=== PATIENT | male | born 1970 | race Caucasian/White ===

== ENCOUNTER 2017-06-21 12:32 | Inpatient (IN) | payer BC, OTHER ==
[~2017-06-21] VITALS: Ht 182.9 cm; Wt 84.8 kg
--- NOTE | 2017-06-22 00:20 | NUR ---
PRE ADMISSION Pt is a 46 y/o male, seen at intake, AAOx4, no SOB with mild to moderate anxiety noted at this time. Discussed with patient the admission policies of the unit. Patient is coherent and able to respond to questions appropriately. Pt is ambulatory with steady gait. Vital signs taken and as follows: BP: 137/68, P: 107, R: 16, O2: 97%, T: 97.8, PA: 5/10. Pt verbalized understanding of instructions and teachings regarding disposal of narcotic and other controlled home medications, unit protocols such as taking of vital signs Q4H and handling and disposal of contraband. Will continue with admission upon pts arrival on the unit.
--- NOTE | 2017-06-22 00:31 | NUR ---
ADMISSION NOTE Pt is a 38 y/o male admitted on 04/26/17 for opiate and ETOH dependence, arrived on the unit at 0031. Pt is allergic to penicillins, denies history of seizures. Pt was able to provide UDS. Upon admission CIWA 6, BP: 137/68, P: 107, R: 16, O2: 97%, T: 97.8, PA: 5/10. Weight 187, height 6'0. Pt reports he does have a PCP, smokes 0.5 packs daily, denies being hospitalized within past 30 days. Pt is able to understand and respond to all questions pertaining to his hospitalization. Substance Abuse History is as follows: 1. Buprenorphine 1 mg daily, last intake of 2 mg on 06/21/17 at 1430, at this rate for 3 months. 2. Beer "Two beers" 1-2 x weekly, last intake of 2 beers on 06/20/17, at this rate for 17 years. Pt denies prior detox or treatment facilities. Pt reports this is his first time being off of Buprenorphine and beer. Pt reports the following family medical history: father-HTN and enlarged prostate, mother-depression. Pt reports he has recent job loss in April and is recently homeless d/t being kicked out by his . Pt reports one overdose from buprenorphine in April 2017 r/t feelings of depression and anxiety, denies SI. PMH: Anxiety, depression, insomnia, hypothyroid, genital warts. Past surgical history: Osteotomy and tonsillectomy. Pt denies any hx of seizures. Pt brought non-controlled medications from home. Upon assessment, pt is AAOx4, pt presents with anxiety, mild tremors, restlessness, increased HR, irritability, mild sweats. Pt also complains of chronic pain 5/10 in left hip and right femur. Pt reports he does not take NSAIDS d/t causing moderate nasal congestion. Respirations even and unlabored. Denies SOB, chest pain, N/V/D. Bowel sounds active x 4, abdomen soft. PERRLA. Skin intact, no open wounds noted. Pt denies SI/HI. Educational information provided and left at bedside. Pt oriented to room and encouraged to notify staff with any concerns. Safety measures in place. Call light within reach, side rails up x 2, bed locked and in low position. Will continue to monitor.
[2017-06-22] MEDS ORDERED: CLONIDINE HCL 0.1 MG TABLET PO PRN (01:30)
[2017-06-22] MEDS ORDERED: LORAZEPAM 1 MG TABLET PO PRN ×2 (01:30)
[2017-06-22] MEDS ORDERED: LOPERAMIDE HCL 2 MG CAPSULE PO PRN ×2 (01:30)
[2017-06-22] MEDS ORDERED: IBUPROFEN 600 MG TABLET PO PRN (01:30)
[2017-06-22] MEDS ORDERED: LORAZEPAM 2 MG/1 ML VIAL IM PRN (01:30)
[2017-06-22] MEDS ORDERED: METHOCARBAMOL 750 MG TABLET PO PRN (01:30)
[2017-06-22] MEDS ORDERED: ACETAMINOPHEN 325 MG TABLET PO PRN (01:30)
[2017-06-22] MEDS ORDERED: diphenhydrAMINE 50 MG CAPSULE PO PRN (01:30)
[2017-06-22] MEDS ORDERED: ONDANSETRON ODT 4 MG TAB.RAPDIS SL PRN (01:30)
[2017-06-22] MEDS ORDERED: MAGNESIUM HYDROXIDE 30 ML LIQUID UDC PO PRN (01:30)
[2017-06-22] MEDS ORDERED: MAG HYDROX/AL HYDROX/SIMETH 30 ML LIQUID UDC PO PRN (01:30)
[2017-06-22] MEDS ORDERED: THIAMINE HCL 200 MG/2 ML VIAL IM ONE (01:30)
[2017-06-22] MEDS ORDERED: HYDROXYZINE PAMOATE 25 MG CAPSULE PO PRN ×2 (01:30→13:15)
[2017-06-22] MEDS ORDERED: MIRALAX 17 GM POWD.PACK PO PRN (01:30)
[2017-06-22] MEDS ORDERED: BUPRENORPHINE HCL 2 MG TAB.SUBL SL PRN (01:30)
[2017-06-22] MEDS ORDERED: ONDANSETRON 4 MG/2 ML VIAL IM PRN (01:30)
[2017-06-22 01:58] LABS: *AMPHETAMINE, URINE NEGATIVE (NEGATIVE); *BARBITURATE, URINE NEGATIVE (NEGATIVE); *CANNABINOID, URINE NEGATIVE (NEGATIVE); *COCCAINE, URINE NEGATIVE (NEGATIVE); *OPIATE, URINE NEGATIVE (NEGATIVE); *PHENCYCLIDINE SCREEN,URINE NEGATIVE (NEGATIVE)
[2017-06-22 02:04] LABS: BASOPHILS # (AUTO) 0.1 K/uL (0.0-8.0); BASOPHILS % (AUTO) 0.7 % (0.0-2.0); EOSINOPHILS # (AUTO) 0.2 K/uL (0.0-0.7); EOSINOPHILS % (AUTO) 1.5 % (0.0-7.0); HEMATOCRIT 45.7 % (40-50); HEMOGLOBIN 15.3 G/DL (14.0-18.0); LYMPHOCYTES # (AUTO) 2.8 K/UL (0.8-4.8); LYMPHOCYTES % (AUTO) 26.1 % (20.5-51.5); MEAN CORPUSCULAR HEMOGLOBIN 29.5 UUG (27.0-31.0); MEAN CORPUSCULAR HGB CONC 34 g/dL (32.0-37.0); MEAN CORPUSCULAR VOLUME 88.1 FL (82.0-92.0); MONOCYTES # (AUTO) 0.9 K/UL (0.1-1.30); MONOCYTES % (AUTO) 8.2 % (0.0-11.0); NEUTROPHILS # (AUTO) 6.7 K/UL (1.8-8.9); NEUTROPHILS % (AUTO) 63.5 % (38.5-71.5); PLATELET COUNT (AUTO) 197 K/UL (150-450); RED BLOOD CELL COUNT(AUTO) 5.18 MIL/UL (4.7-6.1); WHITE BLOOD COUNT (AUTO) 10.7 K/UL (4.0-11.2)
--- NOTE | 2017-06-22 02:10 | NUR ---
X 1 ATIVAN 1 MG AND PRN TYLENOL 650 MG ADMINISTRATION CIWA 6. Pt presents with moderate anxiety, restlessness, mild tremors, mild sweats, irritability. Pt also reports chronic pain 5/10 in left hip and right femur. Safety measures in place. Call light within reach. Will continue to monitor.
[2017-06-22 02:17] LABS: ALANINE AMINOTRANSFERASE 50 U/L (16-63); ALKALINE PHOSPHATASE 76 U/L (50-136); AMYLASE 42 U/L (25-115); ASPARTATE AMINOTRANSFERASE 20 U/L (15-37); BILIRUBIN,TOTAL 0.4 mg/dL (0.2-1.0); CARBON DIOXIDE 28 mmol/L (21-32); CHLORIDE 104 mmol/L (98-107); GLUCOSE 81 mg/dL (74-106); LIPASE 109 U/L (73-393); MAGNESIUM 1.9 mg/dL (1.8-2.4); POTASSIUM 4.4 mmol/L (3.5-5.1); UREA NITROGEN, BLOOD 12 mg/dL (7-18)
[2017-06-22] MEDS ORDERED: LORAZEPAM 1 MG TABLET ONE (02:23)
[2017-06-22 02:24] LABS: ETHANOL < 3 MG/DL (0-0)
[2017-06-22] MEDS ORDERED: ACETAMINOPHEN 325 MG TABLET ONE (02:24)
[2017-06-22 02:28] LABS: THYROID STIMULATING HORMONE 2.102 mIU/mL (0.358-3.740)
[2017-06-22] MEDS ORDERED: [UNRECOGNIZED DRUG - CODE] TP ×2 (03:02→03:03)
[2017-06-22] MEDS ORDERED: LEVO50TA8 PO (03:03)
[2017-06-22] MEDS ORDERED: IMIQ1CRE11 TP (03:03)
[2017-06-22] MEDS ORDERED: GABA-534 PO (03:06)
[2017-06-22] MEDS ORDERED: METH500T PO (03:08)
[2017-06-22] MEDS ORDERED: SALS750T20 PO (03:09)
[2017-06-22] MEDS ORDERED: TRAZ-147 PO (03:10)
--- NOTE | 2017-06-22 03:10 | NUR ---
X 1 ATIVAN 1 MG AND PRN TYLENOL REASSESSMENT Pt took a shower after medication administration, pt now laying in bed with eyes closed. CIWA reassessment deferred, to be assessed when pt is awake per orders. Safety measures in place. Call light within reach. Will continue to monitor.
[2017-06-22] MEDS ORDERED: DICL100G16 TP (03:12)
[2017-06-22] MEDS ORDERED: ONDA4TAB10 PO (03:12)
[2017-06-22 04:00] VITALS: BP 114/71
--- NOTE | 2017-06-22 04:00 | NUR ---
CIWA/COW DEFERRED Pt is laying in bed with eyes closed, CIWA/COW deferred, to be assessed when pt is awake per orders. Respirations 16, even and unlabored. Safety measures in place. Call light within reach. Will continue to monitor.
--- NOTE | 2017-06-22 07:26 | NUR ---
END OF SHIFT Pt is a 46 y/o male admitted on 06/22/17 for opiate and ETOH dependence. Pt was dependent on 1 mg buprenorphine daily for 3 months and 2 beers 1-2 x weekly for 17 years. Pt reports last intake of Buprenorphine was 2 mg at 06/21/17 at 1430. Pt is allergic to penicillin, lactose intolerant diet, full code and fall/seizure precautions. No reported seizure history. Pt reports PMH of hypothyroid, anxiety, depression, insomnia, genital warts. Pt presented with anxiety, mild sweats, restlessness, increased HR, mild fine tremors, irritability and chronic pain 5/10 in left hip and right femur. No ordered taper at this time. One time Ativan 1 mg and PRN Tylenol 650 mg administered, effective in S/S of withdrawal as verbalized by pt. Last COW 6 CIWA 6. Pt slept 3 hours, intake 796 ml, void x 1, stool x 0. Safety measures in place. Call light within reach. Will continue to monitor. Endorsed to day shift nurse.
--- NOTE | 2017-06-22 07:27 | NUR ---
Start of Shift Notes: Received report from night nurse. Patient is in his room. Alert and verbally responsive. Oriented x 4. Able to make his/her needs known. Respirations even and unlabored. No SOB noted. Skin warm and moist to touch. Abdomen soft and non-distended. BS (+) in all 4 quadrants. No complains of N/V/D or constipation noted. Bladder non-distended. No complains of dysuria noted. Ambulatory ad shawna with steady gait. Patient is a 46 year old male admitted for ETOH and opiate dependence who was placed on PRNs at this time. Prior to admission, patient was using 1 mg of Subutex SL and "1-2 beers" weekly x 17 years. Has past medical hx of anxiety, depression, hypothyroidism, genital warts and insomnia, tonsillectomy, osteotomy. Allergic to PCN. FULL CODE. Lactose Intolerant. Educated patient on the current plan of care for the day and the medication regimen. Encouraged oral fluid intake and encouraged group participation to learn new skills to prevent relapse. Will continue to monitor closely throughout the day.
[2017-06-22 08:00] VITALS: BP 111/77
--- NOTE | 2017-06-22 08:39 | NUR ---
Clonidine 0.1 mg PO given: Patient noted with complains of anxiety, mild agitation, chills and mild sweats. COWS 4/CIWA 3. BP 111/77. Pulse 90. Non-pharmacological interventions provided but ineffective. Medicated patient with Clonidine 0.1mg PO as ordered. Will monitor for effectiveness.
[2017-06-22] MEDS ORDERED: FOLIC ACID 1 MG TABLET PO SCH (09:00)
[2017-06-22] MEDS ORDERED: THIAMINE HCL 100 MG TABLET PO SCH (09:00)
[2017-06-22] MEDS ORDERED: MULTIVITAMINS,THERAPEUTIC TABLET PO SCH (09:00)
--- NOTE | 2017-06-22 09:39 | NUR ---
Re-assessment: Per patient, PRN Clonidine was effective in reducing anxiety, chills, hot flashes, mild tremors and sweats.
[2017-06-22 12:00] VITALS: BP 128/80
--- NOTE | 2017-06-22 13:14 | NUR ---
Subutex 4 mg SL PRN/Robaxin 750 mg PO given: Patient noted with COWS 13, presented with moderate anxiety, gross tremors, chills, hot flashes, myalgia, runny nose and restlessness with pupil dilation. Medicated patient with Robaxin 750 mg PO as ordered and Subutex 4 mg SL per COWS score. Will monitor for effectiveness.
[2017-06-22] MEDS ORDERED: SALSALATE 750 MG PO PRN (13:15)
[2017-06-22] MEDS ORDERED: VOLTAREN TOP PRN (13:15)
--- NOTE | 2017-06-22 13:44 | NUR ---
Re-assessment: Subutex 4 mg SL COWS 7, less anxiety, less tremors, myalgia and sweats noted. PRN Subutex 4 mg SL given was effective.
[2017-06-22] MEDS ORDERED: CLONIDINE HCL 0.1 MG TABLET PO ONE (14:00)
[2017-06-22] MEDS: GABAPENTIN 400 MG CAPSULE PO SCH ×2 (14:12→21:56)
[2017-06-22] MEDS: BACLOFEN 20 MG TABLET PO SCH ×2 (14:12→21:57)
--- NOTE | 2017-06-22 14:14 | NUR ---
Re-assessment: Robaxin 750 mg PO Per patient, PRN Robaxin was effective in reducing myalgia. PL 08/16.
[2017-06-22] MEDS ORDERED: GABAPENTIN 300 MG CAPSULE PO SCH (15:00)
[2017-06-22 16:00] VITALS: BP 122/71
--- NOTE | 2017-06-22 16:45 | NUR ---
Therapist prompted client to go to group today. Client agreed to attend group.
--- NOTE | 2017-06-22 18:55 | NUR ---
End of Shift Notes: Patient is on close monitoring for s/s of opiate withdrawal. VS monitored closely. No significant abnormalities noted. Withdrawal symptoms were closely monitored. Initial COWS at 0800 4/CIWA 3, patient presented with chills, hot flashes, sweats and tremors felt and anxiety. Medicated patient with Clonidine 0.1mg PO as ordered at 0839 with help after 1 hour. PRN Subutex 4 mg SL and Robaxin 750 mg PO given at 1314 due to COWS 13 and myalgia with help after 1 hour. Last COWS 5/CIWA 2. Able to participate in group and activities despite his withdrawal symptoms. All needs met and attended. Will continue to monitor closely.
--- NOTE | 2017-06-22 19:30 | NUR ---
START OF SHIFT Pt is a 46 y/o male admitted on 06/22/17 for opiate and ETOH dependence. Pt was dependent on 1 mg buprenorphine daily for 3 months and 2 beers 1-2 x weekly for 17 years. Pt reports last intake of Buprenorphine was 2 mg at 06/21/17 at 1430. Pt is allergic to penicillin, lactose intolerant diet, full code and fall/seizure precautions. No reported seizure history. Pt reports PMH of hypothyroid, anxiety, depression, insomnia, genital warts. Pt presented with anxiety, mild sweats, restlessness, increased HR, irritability, flat affect, anhedonia, dysphoria and chronic pain / in left hip and right femur. Last BM on 06/20/17. Respirations 20, even and unlabored. Denies N/V/D. Denies chest pain or SOB. Medications due. Safety measures in place with padded rails. Call light within reach. Will continue to monitor.
[2017-06-22 20:00] VITALS: BP 136/73
[2017-06-22] MEDS ORDERED: PNEUMOCOCCAL 23-VAL P-SAC VAC 0.5 ML VIAL IM ONE (21:00)
[2017-06-22] MEDS: CLONIDINE HCL 0.1 MG TABLET PO SCH (21:56)
[2017-06-22] MEDS: QUETIAPINE FUMARATE 25 MG TABLET PO PRN (22:10)
--- NOTE | 2017-06-22 22:10 | NUR ---
PRN SEROQUEL 50 MG ADMINISTRATION Pt requests sleep aid. Safety measures in place. Call light within reach. Will continue to monitor.
--- NOTE | 2017-06-22 23:10 | NUR ---
PRN SEROQUEL REASSESSMENT Pt is laying in bed with eyes closed. Safety measures in place. Call light within reach. Will continue to monitor.
[2017-06-23] VITALS: BP 103/58
--- NOTE | 2017-06-23 | NUR ---
COW/CIWA DEFERRED Pt is laying in bed with eyes closed, COW/CIWA deferred, to be assessed when pt is awake per orders. Respirations 16, even and unlabored. Safety measures in place. Call light within reach. Will continue to monitor.
[2017-06-23 04:00] VITALS: BP 106/67
[2017-06-23] MEDS ORDERED: LEVOTHYROXINE SODIUM 50 MCG TABLET PO SCH (07:00)
--- NOTE | 2017-06-23 07:11 | NUR ---
END OF SHIFT Pt is a 46 y/o male admitted on 06/22/17 for opiate and ETOH dependence. Pt was dependent on 1 mg buprenorphine daily for 3 months and 2 beers 1-2 x weekly for 17 years. Pt reports last intake of Buprenorphine was 2 mg at 06/21/17 at 1430. Pt is allergic to penicillin, lactose intolerant diet, full code and fall/seizure precautions. No reported seizure history. Pt reports PMH of hypothyroid, anxiety, depression, insomnia, genital warts. Pt presented with anxiety, mild sweats, restlessness, increased HR, irritability, flat affect, anhedonia, dysphoria and chronic pain 6/10 in left hip and right femur. Scheduled medications and PRN Seroquel administered, effective in S/S of withdrawal as verbalized by pt. Last COW 5 CIWA 6 at 1999. Last BM on 06/20/17. Pt refused scheduled 2100 pneumonia vaccine, reports he would be prefer it in the morning. Pt slept 4 hours. Intake 1200 ml, void x 2, stool x 0. Safety measures in place. Call light within reach. Pts needs have been met. Endorsed to day shift nurse.
[2017-06-23 08:00] VITALS: BP 106/68
[2017-06-23] MEDS ORDERED: INFLUENZA VACCINE 2017-2018 0.5 ML DISP.SYRIN IM ONE (09:00)
[2017-06-23] MEDS ORDERED: TUBERCULIN,PURIF.PROT.DERIV. 5 TU/0.1 ML TEST ID ONE (09:00)
[2017-06-23] MEDS ORDERED: PNEUMOCOCCAL 23-VAL P-SAC VAC 0.5 ML VIAL IM ONE (09:00)
[2017-06-23] MEDS: GABAPENTIN 400 MG CAPSULE PO SCH ×3 (09:14→21:16)
[2017-06-23] MEDS: BACLOFEN 20 MG TABLET PO SCH ×3 (09:14→21:16)
[2017-06-23] MEDS: CLONIDINE HCL 0.1 MG TABLET PO SCH ×2 (09:14→21:16)
[2017-06-23 12:00] VITALS: BP 134/73
[2017-06-23 13:29] LABS: HEPATITIS B SURFACE AG Negative (Negative)
[2017-06-23 16:00] VITALS: BP 126/69
[2017-06-23] MEDS ORDERED: DICYCLOMINE HCL 20 MG TABLET PO PRN (16:45)
--- NOTE | 2017-06-23 17:44 | NUR ---
Therapist prompted client to attend group today, client agreed to attend.
--- NOTE | 2017-06-23 18:47 | NUR ---
End of Shift Notes: Patient continues to be on PRNs to manage withdrawal symptoms related to opiates. VS monitored closely. No significant abnormalities noted. Withdrawal symptoms were closely monitored. Initial COWS 5/CIWA 3, due to anxiety, tremors and mild sweats. Last COWS 3/CIWA 2. FLU/PNA vaccine given. No adverse reactions noted. Patient afebrile. Participated in group and activities. All needs met and attended. Will continue to monitor closely.
[2017-06-23] MEDS ORDERED: HYDR-3895 PO (19:58)
[2017-06-23] MEDS ORDERED: CLON0.1T14 PO (19:58)
[2017-06-23] MEDS ORDERED: GABA-536 PO (19:58)
[2017-06-23] MEDS ORDERED: BACL20TA PO (19:58)
[2017-06-23] MEDS ORDERED: SALS750T20 PO (19:58)
[2017-06-23] MEDS ORDERED: ACET325T53 PO (19:58)
[2017-06-23] MEDS ORDERED: QUET25TA PO (19:58)
[2017-06-23] MEDS ORDERED: DICY20TA28 PO (19:58)
[2017-06-23 20:00] VITALS: BP 127/76
--- NOTE | 2017-06-23 20:00 | NUR ---
1999 Patient received awake, alert and just returning to his room # [id number] from [facility] in recreation room. Gait is steady and brisk. Patient responds to nurse's greeting and introduction with eye contact and, " Hi, how are you?" Patient's color is pink and his skin is clean, warm, dry and intact. Patient is oriented to person, place, day, date,time and his personal situation. Patient denies any pain or other discomforts at this time. Patient states that he has been eating his meal trays and taking fluids ad shawna with no gastric issues. Vital signs are:[id number] 127/76, O2 Sat 100%, COWS 3, CIWA 2 . Patient voices no requests for anything presently. Patient was admitted on 06/22/17 for Alcohol (Beer) and Subutex withdrawal and his condition is stable at this time. Patient is to be discharged tomorrow. Bed is locked and in lowest position, bed rails are up X 1 and call light is on bed.
--- NOTE | 2017-06-24 | NUR ---
Patient requested to not be awakened at this time for V/S, COWS, CIWA to be done.
[2017-06-24] MEDS: QUETIAPINE FUMARATE 25 MG TABLET PO PRN (00:38)
--- NOTE | 2017-06-24 00:38 | NUR ---
PRN MEDICATIONS: Prn Seroquel 50 mg p.o. given per c/o "I can't sleep" and Prn Vistaril 25 mg p.o. given for c/o anxiety.
--- NOTE | 2017-06-24 01:38 | NUR ---
REASSESSMENT PRN MEDICATION: Patient is sleeping comfortably with eyes closed and respirations quiet, deep, unlabored at 12.
--- NOTE | 2017-06-24 04:00 | NUR ---
Patient requested earlier in shift not to be awakened for V/S, COWS, CIWA to be done at this time. These assessments deferred.
--- NOTE | 2017-06-24 06:30 | NUR ---
0630 Patient slept a total of 6.75 hours and he had 4 voids and no stools. Total intake was 1,650 ml p.o. Prn medications given noted separately per floor protocol. V/SS afebrile, last COWS 3, last CIWA 2 at 1999.
--- NOTE | 2017-06-24 07:30 | NUR ---
START OF SHIFT Received report from night nurse. 46 year old male patient admitted on 06/22/17 for opiate and ETOH withdrawals. Pt has not yet started on a taper and is medically cleared for d/c today. PRN Seroquel and Vistaril administered and effective. Pt slept for 6 hours. V/S remain WNL throughout CIWA is 2, and COWS is 3. No acute withdrawal discomfort, pt remains compliant. Will continue to monitor.
[2017-06-24 08:30] VITALS: BP 124/72
[2017-06-24 08:46] VITALS: BP 124/74
[2017-06-24] MEDS: CLONIDINE HCL 0.1 MG TABLET PO SCH (08:46)
[2017-06-24] MEDS: GABAPENTIN 400 MG CAPSULE PO SCH (08:46)
[2017-06-24] MEDS: BACLOFEN 20 MG TABLET PO SCH (08:46)
--- NOTE | 2017-06-24 10:30 | NUR ---
D/C NOTES Pt is A/O x4. V/S remain WNL. Pt denies SI/HI or hallucinations. Pt shows no s/s of acute withdrawal at this time, and is stable. MD has medically cleared pt for d/c . Education on Hepatitis C, smoking cessation and medication side effects provided. Pt verbalizes understanding. All pt belongings are in belonging bag, including prescriptions, including home medications. Refuses PNU vaccination. Pt is being accompanied by [employer] at this time to be transported to rehab. All needs met.
== END 2017-06-24 10:30 | disposition other institution (70) | DRG 895 ==
LOC: SRC 06-22 00:01
PROVIDERS: ADMIT Internal Medicine; ATTEND Internal Medicine
PROC: HZ2ZZZZ Detoxification Services for Substance Abuse Treatment (ICD-10-PCS; principal; 2017-06-22)
PROC: HZ41ZZZ Group Counseling for Substance Abuse Treatment, Behavioral (ICD-10-PCS; principal; 2017-06-22)
DX: F11.23 Opioid dependence with withdrawal (principal); E03.9 Hypothyroidism, unspecified; F10.10 Alcohol abuse, uncomplicated; Y90.9 Presence of alcohol in blood, level not specified; Z59.1 Inadequate housing; F17.210 Nicotine dependence, cigarettes, uncomplicated; F12.90 Cannabis use, unspecified, uncomplicated; G47.00 Insomnia, unspecified; Z82.49 Family history of ischemic heart disease and other diseases of the circulatory system; Z81.8 Family history of other mental and behavioral disorders; Z63.9 Problem related to primary support group, unspecified; F43.21 Adjustment disorder with depressed mood; G89.29 Other chronic pain; Z79.899 Other long term (current) drug therapy
CPT/HCPCS: 36415; 70030-TC; 80307; 83690; 83735; 84443; 85025; 86580; 86592; 86705; 86803; 87340; 87806; 90686; 90732; G0480